=== PATIENT | female | born 1970 | race Asian ===

== ENCOUNTER 2022-01-19 14:06 | Emergency (ER) | payer MEDICAID ==
[~2022-01-19] VITALS: Ht 154.9 cm; Wt 57.3 kg
[2022-01-19] MEDS ORDERED: CEPH250T PO (16:41)
[2022-01-19] MEDS ORDERED: MUPI22OI30 TOP (16:41)
[2022-01-19] MEDS ORDERED: PERM60CR19 TP (16:41)
== END 2022-01-19 17:06 | disposition home or self-care (01) ==
LOC: ER 14:07
DX: L08.9 Local infection of the skin and subcutaneous tissue, unspecified (principal); Z79.2 Long term (current) use of antibiotics; Z79.899 Other long term (current) drug therapy
CPT/HCPCS: 99283